=== PATIENT | male | born 1975 | race Caucasian/White ===

== ENCOUNTER 2016-11-01 17:31 | Inpatient (IN) | payer MEDICARE ==
[~2016-11-01] VITALS: Ht 175.3 cm; Wt 69.0 kg
[2016-11-01 17:53] LABS: BASO % 0.5 % (0.2-1.2); EOS # 0.1 10_X3_uL (0.0-0.5); EOS % 2.4 % (0.8-7.0); GRAN # 3.8 10_X3_uL (1.8-5.4); GRAN % 66.2 % (34.0-67.9); HEMATOCRIT 42.5 % (40-51); HEMOGLOBIN 14.5 g/dL (13.7-17.5); LYMPH # 1.2 10_X3_uL (1.3-3.6); LYMPH % 20.9 % (21.8-53.1); MEAN CORPUSCULAR HEMOGLOBIN 30.3 pg (27.0-33.0); MEAN CORPUSCULAR HGB CONC 34.1 g/dL (32.0-36.0); MEAN CORPUSCULAR VOLUME 88.9 fL (79-92); MEAN PLATELET VOLUME 10.1 fl (7.5-11.5); MONO # 0.6 10_X3_uL (0.3-0.8); PLATELET COUNT 266 x10_3/uL (163-337); RED BLOOD COUNT 4.78 x10_6/uL (4.6-6.1); RED CELL DISTRIBUTION WIDTH 13.2 % (11.6-14.4); WHITE BLOOD COUNT 5.8 x10_3/uL (4.2-9.1)
[2016-11-01 18:05] LABS: INR 0.9 (0.9-1.1); PROTHROMBIN TIME (PATIENT) 9.7 SECONDS (9.9-11.1)
[2016-11-01 18:06] LABS: ALBUMIN 3.7 gm/dL (3.4-5.0); ALKALINE PHOSPHATASE 147 U/L (50-136); ALT/SGPT 45 U/L (7.53-40.17); AST/SGOT 56 U/L (6.66-35.34); BILIRUBIN,TOTAL 0.39 mg/dL (0.0-1.0); BLOOD UREA NITROGEN 11 mg/dL (7-18); CARBON DIOXIDE 19 mmol/L (21-32); CREATININE 1.1 mg/dL (0.6-1.3); GLUCOSE,RANDOM 338 mg/dL (70-99); LIPASE 30 U/L (6.75-60.75); POTASSIUM 4.1 mmol/L (3.5-5.1); SODIUM 133 mmol/L (136-145); TOTAL PROTEIN 7.6 gm/dL (6.4-8.2)
[2016-11-01 20:52] LABS: URINE BILIRUBIN NEGATIVE (NEGATIVE); URINE BLOOD TRACE (NEGATIVE); URINE KETONE TRACE (NEGATIVE); URINE LEUKOCYTE ESTERASE TRACE (NEGATIVE); URINE NITRATE NEGATIVE (NEGATIVE); URINE PROTEIN TRACE (NEGATIVE); UROBILINOGEN NORMAL mg/dL (<1.0)
[2016-11-01 21:02] LABS: URINE GLUCOSE (UA) 1000 mg/dL (NORMAL); URINE RBC 0-5 /[HPF] (0-2); URINE SQUAMOUS EPITHELIAL CELL 0-10 /[HPF] (NONE SEEN); URINE WBC 0-5 /[HPF] (0-3)
[2016-11-01 21:03] LABS: URINE BACTERIA TRACE (NONE SEEN)
[2016-11-02 06:56] LABS: HEMATOCRIT 37.7 % (40-51); HEMOGLOBIN 12.3 g/dL (13.7-17.5); MEAN CORPUSCULAR HEMOGLOBIN 29.4 pg (27.0-33.0); MEAN CORPUSCULAR HGB CONC 32.6 g/dL (32.0-36.0); MEAN CORPUSCULAR VOLUME 90.2 fL (79-92); MEAN PLATELET VOLUME 10.3 fl (7.5-11.5); RED BLOOD COUNT 4.18 x10_6/uL (4.6-6.1); WHITE BLOOD COUNT 5.5 x10_3/uL (4.2-9.1)
[2016-11-02 08:08] LABS: BLOOD UREA NITROGEN 10 mg/dL (7-18); CALCIUM 8.2 mg/dL (8.7-10.7); CARBON DIOXIDE 24 mmol/L (21-32); CREATININE 0.6 mg/dL (0.6-1.3); GLUCOSE,RANDOM 355 mg/dL (70-99); SODIUM 133 mmol/L (136-145)
[2016-11-03 06:43] LABS: HEMATOCRIT 36.1 % (40-51); MEAN CORPUSCULAR HEMOGLOBIN 29.9 pg (27.0-33.0); MEAN CORPUSCULAR HGB CONC 33.2 g/dL (32.0-36.0); MEAN CORPUSCULAR VOLUME 89.8 fL (79-92); MEAN PLATELET VOLUME 10.2 fl (7.5-11.5); RED BLOOD COUNT 4.02 x10_6/uL (4.6-6.1); RED CELL DISTRIBUTION WIDTH 13.2 % (11.6-14.4); WHITE BLOOD COUNT 5.9 x10_3/uL (4.2-9.1)
[2016-11-03 08:23] LABS: ALBUMIN 3.3 gm/dL (3.4-5.0); ALKALINE PHOSPHATASE 111 U/L (50-136); ALT/SGPT 44 U/L (7.53-40.17); AST/SGOT 70 U/L (6.66-35.34); BILIRUBIN,TOTAL 0.16 mg/dL (0.0-1.0); CALCIUM 8.3 mg/dL (8.7-10.7); CARBON DIOXIDE 22 mmol/L (21-32); CREATININE 0.6 mg/dL (0.6-1.3); GLUCOSE,RANDOM 88 mg/dL (70-99); SODIUM 145 mmol/L (136-145); TOTAL PROTEIN 6.3 gm/dL (6.4-8.2)
[2016-11-03 08:29] LABS: BLOOD UREA NITROGEN 6 mg/dL (7-18)
[2016-11-04 07:32] LABS: HEMATOCRIT 38.1 % (40-51); HEMOGLOBIN 12.8 g/dL (13.7-17.5); MEAN CORPUSCULAR HGB CONC 33.6 g/dL (32.0-36.0); MEAN CORPUSCULAR VOLUME 89.2 fL (79-92); MEAN PLATELET VOLUME 10.5 fl (7.5-11.5); RED BLOOD COUNT 4.27 x10_6/uL (4.6-6.1); RED CELL DISTRIBUTION WIDTH 13.2 % (11.6-14.4); WHITE BLOOD COUNT 5.7 x10_3/uL (4.2-9.1)
[2016-11-04 07:39] LABS: CALCIUM 8.3 mg/dL (8.7-10.7); CARBON DIOXIDE 22 mmol/L (21-32); CREATININE 0.5 mg/dL (0.6-1.3); GLUCOSE,RANDOM 115 mg/dL (70-99); SODIUM 142 mmol/L (136-145)
[2016-11-04 07:40] LABS: BLOOD UREA NITROGEN 3 mg/dL (7-18)
[2016-11-06 08:39] LABS: HBS AG SCREEN Non Reactive (NR); HCV Reactive (NR)
== END 2016-11-04 12:35 | disposition home or self-care (01) | DRG 378 ==
LOC: ER 17:31 → MS 18:50 → UNDODEPER 11-04 19:31
PROVIDERS: Internal Medicine; ADMIT Family Medicine
PROC: 0DB48ZX Excision of Esophagogastric Junction, Via Natural or Artificial Opening Endoscopic, Diagnostic (ICD-10-PCS; principal; 2016-11-04)
DX: K92.0 Hematemesis (principal); R04.2 Hemoptysis; L03.311 Cellulitis of abdominal wall; K52.9 Noninfective gastroenteritis and colitis, unspecified; K92.2 Gastrointestinal hemorrhage, unspecified; K62.5 Hemorrhage of anus and rectum; R74.0 Nonspecific elevation of levels of transaminase and lactic acid dehydrogenase [LDH]; E11.9 Type 2 diabetes mellitus without complications; R10.13 Epigastric pain; N20.0 Calculus of kidney; I10 Essential (primary) hypertension; J44.9 Chronic obstructive pulmonary disease, unspecified; K21.9 Gastro-esophageal reflux disease without esophagitis; F17.210 Nicotine dependence, cigarettes, uncomplicated; Z79.899 Other long term (current) drug therapy; Z79.4 Long term (current) use of insulin; Z80.9 Family history of malignant neoplasm, unspecified; E78.5 Hyperlipidemia, unspecified
CPT/HCPCS: 36415; 80048; 80053; 80061; 80074; 81001; 82962; 83036; 83690; 85025; 85610; 87040; 87045; 87324; 96374; 96375; 96376; 99070; 99285-25; G0328-QW; J2704; J7040; Q9967

== ENCOUNTER 2016-11-01 17:31 | Emergency (ER) | payer MEDICARE | END 2016-11-01 18:50 | disposition other institution (70) | LOC: ER 17:31 | DX: E11.65 Type 2 diabetes mellitus with hyperglycemia (principal); K92.0 Hematemesis; K29.70 Gastritis, unspecified, without bleeding; K62.5 Hemorrhage of anus and rectum; R11.2 Nausea with vomiting, unspecified; R10.9 Unspecified abdominal pain; E11.9 Type 2 diabetes mellitus without complications; I10 Essential (primary) hypertension; F17.210 Nicotine dependence, cigarettes, uncomplicated | CPT/HCPCS: 99285-25 ==

== ENCOUNTER 2016-11-09 15:25 | Emergency (ER) | payer MEDICARE ==
[2016-11-09 16:01] LABS: ARTERIAL BLD GAS O2 SATURATION 96.3 % (94-98); ARTERIAL BLOOD GAS HCO3 27.3 mmol/L (22-26); ARTERIAL BLOOD GAS PCO2 37.5 mmHg (35-48); ARTERIAL BLOOD GAS pH 7.48 (7.35-7.45)
[2016-11-09 16:02] LABS: BASO % 0.1 % (0.2-1.2); EOS % 0.2 % (0.8-7.0); GRAN # 9.2 10_X3_uL (1.8-5.4); GRAN % 92.2 % (34.0-67.9); HEMATOCRIT 42.9 % (40-51); HEMOGLOBIN 14.8 g/dL (13.7-17.5); LYMPH # 0.3 10_X3_uL (1.3-3.6); MEAN CORPUSCULAR HEMOGLOBIN 30.3 pg (27.0-33.0); MEAN CORPUSCULAR HGB CONC 34.5 g/dL (32.0-36.0); MEAN CORPUSCULAR VOLUME 87.7 fL (79-92); MEAN PLATELET VOLUME 10.7 fl (7.5-11.5); MONO # 0.5 10_X3_uL (0.3-0.8); MONO % 4.5 % (5.3-12.2); PLATELET COUNT 196 x10_3/uL (163-337); RED BLOOD COUNT 4.89 x10_6/uL (4.6-6.1); RED CELL DISTRIBUTION WIDTH 13.5 % (11.6-14.4); WHITE BLOOD COUNT 9.9 x10_3/uL (4.2-9.1)
[2016-11-09 16:17] LABS: ALKALINE PHOSPHATASE 226 U/L (50-136); ALT/SGPT 317 U/L (7.53-40.17); BILIRUBIN,TOTAL 1.16 mg/dL (0.0-1.0); BLOOD UREA NITROGEN 10 mg/dL (7-18); CALCIUM 9.3 mg/dL (8.7-10.7); CARBON DIOXIDE 26 mmol/L (21-32); CREATININE 0.6 mg/dL (0.6-1.3); GLUCOSE,RANDOM 76 mg/dL (70-99); LIPASE 12 U/L (6.75-60.75); POTASSIUM 3.4 mmol/L (3.5-5.1); SODIUM 135 mmol/L (136-145); TOTAL PROTEIN 7.9 gm/dL (6.4-8.2)
[2016-11-09 16:38] LABS: AST/SGOT 1426 U/L (6.66-35.34)
[2016-11-09 16:48] LABS: URINE BILIRUBIN NEGATIVE (NEGATIVE); URINE GLUCOSE (UA) NORMAL (NORMAL); URINE KETONE NEGATIVE (NEGATIVE)
[2016-11-09 16:50] LABS: URINE BLOOD NEGATIVE (NEGATIVE)
[2016-11-09 16:51] LABS: URINE LEUKOCYTE ESTERASE TRACE (NEGATIVE); URINE NITRATE NEGATIVE (NEGATIVE); URINE PROTEIN TRACE (NEGATIVE); URINE WBC RARE /[HPF] (0-3)
== END 2016-11-09 18:08 | disposition home or self-care (01) ==
LOC: ER 15:25
PROVIDERS: General Practice
DX: B17.10 Acute hepatitis C without hepatic coma (principal); I95.9 Hypotension, unspecified; R30.0 Dysuria; R10.84 Generalized abdominal pain; R11.2 Nausea with vomiting, unspecified; R19.7 Diarrhea, unspecified; N20.0 Calculus of kidney; L03.311 Cellulitis of abdominal wall; E11.9 Type 2 diabetes mellitus without complications; F41.9 Anxiety disorder, unspecified; Z90.49 Acquired absence of other specified parts of digestive tract; F17.210 Nicotine dependence, cigarettes, uncomplicated; Z79.899 Other long term (current) drug therapy; Z79.4 Long term (current) use of insulin
CPT/HCPCS: 36415; 36600; 80053; 81001; 82009; 82803; 83690; 85025; 96361; 96374; 99070; 99283-25